=== PATIENT | female | born 1965 | race American Indian/Alaskan Native ===

== ENCOUNTER 2017-08-13 09:12 | Outpatient (CLI) | payer BC ==
[2017-08-13 10:01] LABS: Blood Urea Nitrogen 10 mg/dL (7-17)
[2017-08-13] MEDS ORDERED: NACL ONE (10:21)
--- NOTE | 2017-08-13 13:41 | Cat Scan Report ---
CERVICAL SPINE WITH AND WITHOUT CONTRAST HISTORY: Neck pain. TECHNIQUE: Helical CT before and after IV contrast. Sagittal and coronal reformatted images. FINDINGS: There is straightening of the normal cervical lordosis on the sagittal images. There is no evidence for fracture, subluxation or bone lesion. Mild anterior and posterior spurring is identified at C3-4, C4-5 and C5-6. The remaining disc levels are within normal limits. The facet joints are normal. There is no evidence for high-grade central canal stenosis or significant neural foraminal narrowing. No abnormal enhancement following IV contrast. There are 2 hypodense nodules in the left thyroid lobe with the largest measuring 4.0 x 2.7 cm. The right thyroid lobe is normal. IMPRESSION: Straightening of the normal lordosis. Mild to moderate multilevel degenerative disc disease at C3-4, C4-5 and C5-6. No evidence for fracture, bone lesion or malalignment. Left thyroid nodules. Consider correlation with ultrasound.
== END 2017-08-13 09:13 | disposition home or self-care (01) ==
LOC: CT 09:12
PROVIDERS: ATTEND Internal Medicine
DX: M50.31 Other cervical disc degeneration, high cervical region (principal); M50.321 Other cervical disc degeneration at C4-C5 level; E04.2 Nontoxic multinodular goiter
CPT/HCPCS: 36415; 72127; 82565; 84520; Q9967

== ENCOUNTER 2019-03-29 08:25 | Outpatient (CLI) | payer BC ==
--- NOTE | 2019-03-29 11:12 | Mammography Report ---
BILATERAL DIGITAL SCREENING MAMMOGRAM with CAD : 03/29/19 08:25:00 CLINICAL: Routine screening. COMPARISON:11/12/13 FINDINGS: The breasts are heterogeneously dense, which may obscure small masses. No mass, architectural distortion or suspicious calcifications. IMPRESSION: No mammographic evidence of malignancy. BI-RADS CATEGORY: 2 -- Benign RECOMMENDATION: Routine mammographic screening in one year. COMMENT: Patient follow-up letters are generated by our [employer] application.
== END 2019-03-29 08:26 | disposition home or self-care (01) ==
LOC: SPVWC 08:25
PROVIDERS: ATTEND Internal Medicine
DX: Z12.31 Encounter for screening mammogram for malignant neoplasm of breast (principal)
CPT/HCPCS: 77067

== ENCOUNTER 2019-04-02 11:25 | Outpatient (CLI) | payer BC ==
--- NOTE | 2019-04-02 12:43 | XRay Report ---
LUMBAR SPINE RADIOGRAPHS INDICATION: Back pain. COMPARISON: None similar. FINDINGS: AP, lateral and oblique lumbar spine radiographs, 6 images demonstrate normal vertebral body stature, alignment and disc heights except for a possible lumbosacral transitional vertebra and lower lumbar facet arthropathy. Slight lower lumbar degenerative spurring as well. Intact SI joints. Nonobstructive bowel gas pattern with ascending colon stool/possible constipation. Gastric lap band surgery also incidentally noted with tubing leading to the port overlying L3-L4 disc in the midline. CONCLUSION: No acute radiographic abnormality with mid to lower lumbar degenerative changes and gastric lap band noted, as described. Please correlate. Thank you for the opportunity to participate in this patient's care.
== END 2019-04-02 11:26 | disposition home or self-care (01) ==
LOC: XRAY 11:25
PROVIDERS: ATTEND Internal Medicine
DX: M54.9 Dorsalgia, unspecified (principal)
CPT/HCPCS: 72110